=== PATIENT | male | born 1960 | race Caucasian/White ===

== ENCOUNTER 2017-06-23 14:14 | Inpatient (IN) | payer OTHER ==
[~2017-06-23] VITALS: Ht 175.3 cm; Wt 68.0 kg
--- NOTE | 2017-06-23 14:56 | ED SKIN/ALLERGY COMPLAINT ---
History of Present Illness General Chief Complaint: General Adult Stated Complaint: R HAND INFECTION Source: patient, old records Exam Limitations: no limitations Vital Signs & Intake/Output Vital Signs & Intake/Output Vital Signs Date Time Temp Pulse Resp B/P B/P Pulse O2 O2 Flow FiO2 Mean Ox Delivery Rate 06/23 1851 98.8 84 20 109/68 95 Room Air 06/23 1847 96 Room Air 06/23 1518 98.9 86 16 101/53 95 Room Air 06/23 1433 99.0 101 28 142/78 Allergies Coded Allergies: Penicillins (HIVES 06/23/17) Reconcile Medications Ibuprofen 600 MG TABLET 1 TAB PO TID PRN PRN PAIN (Reported) with food Triage Note: PER PT NOTED A BLISTER TO RT WRIST 4 DAYS AGO, AND POPPED IT THEN ANOTHER STARTED, PT WITH ULCERS WITH DRAINAGE NOTED TO RT WRIST DENIES KNOWN INJURY, SWOOLEN RED TO TOUCH WHOLE HAND SWOLLEN Triage Nurses Notes Reviewed? yes Onset: Abrupt Duration: week(s): (1), constant Timing: recent history Severity: moderate Severity Numbers: 6 Location: extremities Possible Factors: no cause identified No Modifying Factors: none Associated Symptoms: swelling/mass/lumps HPI: 57-year-old male with no medical history presents to the ER for evaluation he states over the past 4 days he noticed a blister to his right wrist. He denies any known injury or trauma. He states that he popped the blister and subsequently the next day he developed a second blister over his wrist with significant swelling redness warmth and pain. He denies any difficulty or pain with range of motion of his wrist. He states that he's been bit by a brown recluse spiders in the past several denies noting any recent spider bites. He just moved back from [place] 3 weeks ago. He denies any fevers chills night sweats weight loss. No other rashes to his skin. He's been taking Tylenol Advil without appointment. He is an active smoker and denies alcohol. When questioning the patient by myself without nursing present- he now admits to recent IV drug abuse in that region 1 week ago prior to noticing the blister that developed 4 days ago. (Zheng Perez) Past History Travel History Traveled to [place] past 21 day No Medical History Any Pertinent Medical History? none Neurological: NONE EENT: NONE Cardiovascular: NONE Respiratory: NONE Gastrointestinal: NONE Hepatic: NONE Renal: NONE Musculoskeletal: NONE Psychiatric: NONE Endocrine: NONE Surgical History Surgical History: non-contributory Psychosocial History What is your primary language Welsh Tobacco Use: Current Daily Use Daily Tobacco Use Amount/Type: => 5 Cigarettes daily ETOH Use: heavy use Family History Hx Contributory? No (Zheng Perez) Review of Systems Review of Systems Constitutional: Reports: see HPI. Comments Review of systems: See HPI, All other systems negative. Constitutional, no chills no fever, HEENT: no sore throat no congestion Cardiovascular: No chest pain , no palpitation Skin: no rashes, no change in skin Respiratory: No dyspnea no cough no sputum GI: No nausea no vomiting, no diarrhea, : No dysuria Muscle skeletal: No joint pain, no back pain Neurologic: , no headache Heme/endocrine: No bruising Immunology: No lymphadenopathy (Zheng Perez) Physical Exam Physical Exam General Appearance: well developed/nourished, alert, awake Comments: Well-developed well-nourished patient in no apparent distress. HEENT: Atraumatic, extraocular motion intact Neck: Supple, FROM Back: FROM Cardiovascular: Regular rate and rhythms no murmur Respiratory: No respiratory distress. Patient speaking in full complete sentences. Breath sounds clear to auscultation bilaterally: NO W/R/R Shoulder: Atraumatic/Stable. FROM . Elbow: Atraumatic/stable. FROM. No laxity Upper arm/Forearm: Atraumatic. Nontender. 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 Brisk cap refill Lower Extremities: full range of motion Neuro: awake, alert, and oriented to person, place and time. There were no obvious focal neurologic abnormalities. Skin: Warm & dry;No appreciable rash on exposed skin Psych: Mood affect normal, normal memory normal judgment. (Zheng Perez) Progress Differential Diagnosis: abscess/cellulitis, allergic reaction, contact dermatitis, drug reaction, cellulitis, abscess, septic arthritis, EMBEDED FB Plan of Care: Orders Procedure Date/time Status Nothing by Mouth 06/24 B Active CBC WITHOUT DIFFERENTIAL 06/24 599 Active BASIC ELECTROLYTES PLUS BUN&CR 06/24 599 Active Regular Diet 06/23 D Complete Pathway - chart 06/23 1751 Active Code Status 06/23 1751 Active Patient Data 06/23 1626 Active ED Holding Orders 06/23 1605 Active Admit to inpatient 06/23 1605 Active Vital Signs 06/23 1605 Active Code Status 06/23 1605 Complete EKG 06/23 1604 Active Intake & Output 06/23 1509 Active EXTREMETIES CULTURE 06/23 1441 Active BLOOD CULTURE 06/23 1436 Active LACTIC ACID 06/23 1436 Active WESTERGREN SED RATE 06/23 1436 Complete COMPREHENSIVE METABOLIC PANEL 06/23 1436 Active CBC WITHOUT DIFFERENTIAL 06/23 1436 Complete HIV (Reflex to HIVCQ) 06/23 1430 Active HEPATITIS PANEL 06/23 1430 Active House Staff 06/23 UNK Active Lab Add-on Test 06/23 UNK Active VTE Mechanical Prophylaxis 06/23 UNK Active Vital Signs 06/23 UNK Active Intake & Output 06/23 UNK Active Elevate 06/23 UNK Active Current Medications Sig/Sonia Start time Last Medication Dose Stop Time Status Admin Enoxaparin Sodium 40 MG DAILY 06/24 1000 AC (Lovenox) Clindamycin 600 MG Q8H 06/23 2330 AC (Cleocin) Dextrose/Water 50 ML (D5W) Dextrose/Sodium 1,000 ML Q13H 06/23 1830 AC 06/23 Chloride 06/24 2029 1835 (D5-Normal Saline) Ketorolac 15 MG Q6 06/23 1830 AC 06/23 Tromethamine 06/25 0000 1835 (Toradol) Acetaminophen 650 MG Q6P PRN 06/23 1800 AC (Tylenol) Hydrocodone Bitart/ 1 TAB Q6P PRN 06/23 1800 AC Acetaminophen (Vicodin) Morphine Sulfate 2 MG Q4P PRN 06/23 1800 AC (Morphine) Laboratory Tests 06/23/17 1736: Lactic Acid Cancelled 06/23/17 1430: Anion Gap 17 H, Estimated GFR > 60, BUN/Creatinine Ratio 16.7, Glucose 125 H, Lactic Acid 1.5, Calcium 9.3, Total Bilirubin 0.2, AST 33, ALT 33, Alkaline Phosphatase 99, Total Protein 7.9, Albumin 4.1, Globulin 3.8, Albumin/Globulin Ratio 1.1, CBC w Diff NO MAN DIFF REQ, RBC 4.68 L, MCV 91.4, MCH 30.7, MCHC 33.5, RDW 14.2, MPV 7.4, Gran % 66.5, Lymphocytes % 23.7, Monocytes % 7.7, Eosinophils % 1.8, Basophils % 0.3, Absolute Granulocytes 8.1 H, Absolute Lymphocytes 2.9, Absolute Monocytes 0.9 H, Absolute Eosinophils 0.2, Absolute Basophils 0, ESR Westergren 44 H, Hepatitis A IgM Ab Pending, Hep Bs Antigen Pending, Hep B Core IgM Ab Conf Pending, Hepatitis C Antibody Pending, HIV 1&2 Ab Western Blot NONREACTIVE Microbiology 06/23 1519 BLOOD: Blood Culture - RECD 06/23 1445 EXTREMITIE: Culture & Sensitivity - RECD 06/23 1445 EXTREMITIE: Gram Stain - RECD 06/23 1430 BLOOD: Blood Culture - RECD labs ordered, clindamyin 300mg iv ordered, case d/w dr subramanian agrees with plan Discussed with the patient at length all the lab results x-ray findings and the clindamycin IV running. Dr. Subramanian spoke with Dr. lafleur we will admit all placed to surgery for consult. case d/w dr myrick- surgery will consult [address] myrick in dept Diagnostic Imaging: Viewed by Me: Radiology Read. Discussed w/RAD: Radiology Read. Radiology Impression: PATIENT: JARVIS LOPEZ PRESENT AGE: 57 PATIENT ACCOUNT NO: [id number] : 62 LOCATION: [facility] ORDERING PHYSICIAN: Zheng CRAWFORD SERVICE DATE: 06/23/17 EXAM TYPE: RAD - XRY-WRIST COMPLETE-RIGHT EXAMINATION: WRIST, RIGHT CLINICAL INFORMATION : Right wrist swelling, redness and pain. Evaluate for osteomyelitis. COMPARISON : None TECHNIQUE: Four views of the right wrist. FINDINGS: Prominent soft tissue swelling is seen over the lateral and dorsal aspect of the distal radius, perhaps related to cellulitis given the clinical symptoms described. Underlying bony structures are intact with no evidence of focal lytic or destructive bone lesion or abnormal periosteal reaction seen. No acute fracture or dislocation is noted. Old healed fracture deformity of the distal fourth and fifth metacarpal bones is seen. No significant degenerative changes seen. IMPRESSION: 1. Prominent soft tissue swelling over the distal radius, likely related to cellulitis. 2. No plain film evidence of osteomyelitis. DICTATED BY: Lu Martinez MD DATE/TIME DICTATED:06/23/171541 ANALOG DESIGN ENGINEER:KENNETH DATE/ TIME TRANSCRIBED:06/23/171541 CONFIDENTIAL, DO NOT COPY WITHOUT APPROPRIATE AUTHORIZATION. <Electronically signed in Other Vendor System> SIGNED BY: Lu Martinez MD 06/23/17 1548 (Zheng Peerz) Departure Departure Time of Disposition: 1607 Disposition: STILL A PATIENT Condition: Stable Clinical Impression Primary Impression: Cellulitis Qualifiers: Site of cellulitis: extremity Site of cellulitis of extremity: upper extremity Laterality: right Qualified Code: L03.113 - Cellulitis of right upper limb Secondary Impressions: Abscess Referrals: Patient Has No Primary Care Dr (PCP/Family) Departure Forms: Customer Survey General Discharge Information Admission Note Spoke With: Salome Lafleur MD Documentation of Exam: Documentation of any treatments & extenuating circumstances including Concerns Regarding Discharge (functional status, medication knowledge or non-compliance, living conditions, etc.) that warrant an admission rather than observation: IV ANTIBIOTICS, TREND LABS AND CULTURES, SURGERY VS WOUND CARE CONSULT, PREMATURE DISCHARGE WOULD BE MEDICALLY HARMFUL (Zheng Perez) Admission Note Spoke With: Salome Lafleur MD Documentation of Exam: Documentation of any treatments & extenuating circumstances including Concerns Regarding Discharge (functional status, medication knowledge or non-compliance, living conditions, etc.) that warrant an admission rather than observation: [IV antibiotics, follow-up cultures both blood and the wound, surgical consultation, social work consultation for IVDA] PA/BINGO WORKER Co-Sign Statement Statement: ED Attending supervision documentation- [X] I saw and evaluated the patient. I have also reviewed all the pertinent lab results and diagnostic results. I agree with the findings and the plan of care as documented in the PA's/BINGO WORKER's documentation. [X] I have reviewed the ED Record and agree with the PA's/BINGO WORKER's documentation. [] Additions or exceptions (if any) to the PAs/BINGO WORKER's note and plan are summarized below: [SEE ABOVE] (Moris DARDEN,Gabe South
[2017-06-23 14:58] LABS: ABSOLUTE BASOPHIL COUNT 0 /CUMM (0.0-0.2); ABSOLUTE EOSINOPHIL COUNT 0.2 /CUMM (0.0-0.7); ABSOLUTE GRANULOCYTE CT 8.1 /CUMM (1.4-6.5); ABSOLUTE LYMPH COUNT 2.9 /CUMM (1.2-3.4); ABSOLUTE MONOCYTE COUNT 0.9 /CUMM (0.10-0.60); BASOPHIL % 0.3 % (0.0-2.0); EOSINOPHIL % 1.8 % (0-5); GRANULOCYTE % 66.5 % (42.2-75.2); HEMATOCRIT 42.8 % (42-52); MEAN CORPUSCULAR HGB 30.7 PG (27.0-31.0); MEAN CORPUSCULAR HGB CONC 33.5 G/DL (33.0-37.0); MEAN CORPUSCULAR VOLUME 91.4 FL (80.0-94.0); MEAN PLATELET VOLUME 7.4 FL (7.4-10.4); PLATELET COUNT 334 /CUMM (130-400); RBC DISTRIBUTION WIDTH 14.2 % (11.5-14.5); RED BLOOD CELL CT 4.68 /CUMM (4.70-6.10); WHITE BLOOD CELL COUNT 12.1 /CUMM (4.8-10.8)
[2017-06-23] MEDS ORDERED: IBUPROFEN600 M1 PO (15:28)
--- NOTE | 2017-06-23 15:48 | RADIOLOGY REPORT ---
EXAMINATION: DR WRIST, RIGHT CLINICAL INFORMATION: Right wrist swelling, redness and pain. Evaluate for osteomyelitis. COMPARISON: None TECHNIQUE: Four views of the right wrist. FINDINGS: Prominent soft tissue swelling is seen over the lateral and dorsal aspect of the distal radius, perhaps related to cellulitis given the clinical symptoms described. Underlying bony structures are intact with no evidence of focal lytic or destructive bone lesion or abnormal periosteal reaction seen. No acute fracture or dislocation is noted. Old healed fracture deformity of the distal fourth and fifth metacarpal bones is seen. No significant degenerative changes seen. IMPRESSION: 1. Prominent soft tissue swelling over the distal radius, likely related to cellulitis. 2. No plain film evidence of osteomyelitis.
--- NOTE | 2017-06-23 18:22 | History & Physical ---
AlliIsaac 06/23/17 4509: General Information and HPI MD Statement: I have seen and personally examined JARVIS LOPEZ and documented this H&P. The patient is a 57 year old M who presented with a patient stated chief complaint of right hand redness and swelling with pain for last 1 week.[]. Source of Information: patient Exam Limitations: no limitations History of Present Illness: 57 YO M smoker (1-2 pack/day), IV drug abuser without any significant past medical history came to ED with right hand swelling, redness and pain for last 1 week. He reported that he was in his usual state of health 1-1/2 weeks back and he was in [place] where he is assuming that he has been bit by brown recluse spider. Patient also reported that he injected himself with heroin injection on the right hand at the same spot where he developed a blister and no pus is coming out from that site. According to the patient at that point the site of injection was clean. But after 2-3 days he developed redness and blister on right hand at the injection Spot. Later on this blister burst by itself with fluid discharge and he developed another blister over his hand. Later on pus started to come from the sites and his redness starts spreading towards the dorsal surface of the forearm. Now he is not able to make a fist and his pain has increased to 10/10, sharp and continuous pain. Patient also reported that he didn't see the spider but he is assuming that there was spider bite. Patient denied any chest pain, short of breath, palpitation, nausea, vomiting, night sweats, unintentional weight loss, cough, fever, chills, rash on his other part of the body, sick contacts, abdominal pain and dysuria. Patient also reported that he was using IV drugs including heroin for long time but last 2 years he is trying to quit it and last time he used one-week back when he injected himself on right hand. ED course; Vitals: Temperature 99.0, pulse 101, respiratory rate 28, blood pressure 142/78, oxygen saturation 95% room air. Labs: WBC count 12.1, hemoglobin 14.4, hematocrit 42.8, platelet count 334, sodium 143, potassium 4.1, BUN 10, creatinine 0.6, anion gap 17, glucose 125, lactic acid 1.5, calcium 9.3, bilirubin 0.2, AST 33, ALT 33, alkaline phosphatase 99, total protein 7.9, albumin 4.1, globulin 3.8 Patient received clindamycin in ED. Allergies/Medications Allergies: Coded Allergies: Penicillins (HIVES 06/23/17) Home Med list Ibuprofen 600 MG TABLET 1 TAB PO TID PRN PRN PAIN (Reported) with food Past History Travel History Traveled to [place] past 21 day No Medical History Neurological: NONE EENT: NONE Cardiovascular: NONE Respiratory: NONE Gastrointestinal: NONE Hepatic: NONE Renal: NONE Musculoskeletal: NONE Psychiatric: NONE Endocrine: NONE Surgical History Surgical History: non-contributory Past Family/Social History Psychosocial History ETOH Use: heavy use Review of Systems Review of Systems Constitutional: Reports: no symptoms. EENTM: Reports: no symptoms. Cardiovascular: Reports: no symptoms. Respiratory: Reports: no symptoms. GI: Reports: no symptoms. Genitourinary: Reports: no symptoms. Musculoskeletal: Reports: see HPI. Skin: Reports: see HPI. Neurological/Psychological: Reports: no symptoms. Exam & Diagnostic Data Last 24 Hrs of Vital Signs/I&O Vital Signs Date Time Temp Pulse Resp B/P B/P Pulse O2 O2 Flow FiO2 Mean Ox Delivery Rate 06/23 1518 98.9 86 16 101/53 95 Room Air 06/23 1433 99.0 101 28 142/78 Intake & Output 06/23 1600 02/ 0800 02/08 0000 Intake Total Output Total Balance Patient 150 lb Weight Physical Exam General Appearance Alert, Oriented X3, Cooperative, No Acute Distress Skin Temp/Moisture Exam: Warm/Dry Sepsis Skin Exam (color): Normal for Ethnicity HEENT Atraumatic, PERRLA, EOMI Neck Supple Cardiovascular Normal S1, Normal S2 Lungs Clear to Auscultation, Normal Air Movement Abdomen Soft, No Tenderness Neurological Normal Speech, Strength at 5/5 X4 Ext, Normal Tone Extremities No Edema, right hand redness and swelling on dorsal radial side., swellin gof right thenar eminence, pus is draining from the dorsal surface of hand. Assessment/Plan Assessment: 57 YO M smoker (1-2 pack/day), IV drug abuser without any significant past medical history came to ED with right hand swelling, redness and pain for last 1 week. We will admit the patient on general medicine floor to treat for right hand abscess and cellulitis: Right hand dorsal subcutaneous space abscess and spreading cellulitis: -Nothing by mouth for I&D of right hand abscess. -IV hydration -Pain medication according to the pain pathway -IV clindamycin every 8 hourly -We will follow surgery recommendations. -Right hand elevation to decrease the swelling. -OT evaluation in the morning and hand exercises. DVT Prophylaxis; Mechanical and Lovenox subcutaneous. CODE STATUS: DNR/DNI As Ranked By This Provider Problem List: 1. Abscess 2. Cellulitis Qualifiers Site of cellulitis: extremity Site of cellulitis of extremity: upper extremity Laterality: right Qualified Code: L03.113 - Cellulitis of right upper limb Core Measures/Misc (01/30) Acute Coronary Syndrome ACS Diagnosis: No Congestive Heart Failure Congestive Heart Failure Diagnosis No Cerebrovascular Accident CVA/TIA Diagnosis: No VTE (View Protocol) VTE Risk Factors Age>40 No Mechanical VTE Prophylaxis d/t N/A MechProphylax Ordered No VTE Pharm Prophylaxis d/t NA PharmProphylax ordered Sepsis (View protocol) Sepsis Present: No Yonatan Flores 06/23/17 1822: Resident Review Statement Resident Statement: examined this patient, discussed with record label intern, agreed with record label intern, discussed with family, reviewed EMR data (avail), reviewed images, amended to note Other Findings: 57-year-old gentleman with history of IV drug abuse, presents with right wrist swelling, redness, and oozing wounds. A week and a half prior to admission, patient used IV drugs at the same site of erythema. Following that he noticed a blister that he popped and then another one appeared which he popped again. This resulted in extensive erythema and eventual appearance of skin openings oozing yellow pus. This prompted patient to come to the ED and seek medical attention. Also, patient mentions that he believes he might have encountered a spider bite at the same site while he was in [place] a week and half ago. On physical exam patient has severe pain on the medial aspect of the right wrist , erythema without margins and significant edema that almost extends beyond the erythema. He has no fever, no evidence of skin bullae, necrosis or ecchymosis. Patient will be admitted to general medicine floor. 1. Purulent cellulitis: Clindamycin IV 600 mg every 8 hours, for possible MRSA. This will provide appropriate coverage for possible secondary infection following spider bite. Patient has no systemic signs of infection. May check CRP and ESR. Importantly, on wrist x-ray-the infection is only limited to soft tissue over the distal radius. Patient needs incision and drainage, surgery notified. Frequent right wrist exams to check for range of motion, and signs of neurovascular compromise. Follow up wound culture results from OR. Blood cultures. Adequate pain control with Toradol [id number] as well as narcotics when necessary. D5 normal saline at 75 mL an hour. Nothing by mouth. Check HIV, hep C and B. DNR/DNI Nothing by mouth Lovenox for DVT prophylaxis. Ciarra DARDEN,Salome 06/23/17 2308: Attending MD Review Statement Attending Statement Attending MD Statement: examined this patient, discuss w/resident/PA/CENTRAL STERILE TECHNICIAN, agreed w/resident/PA/CENTRAL STERILE TECHNICIAN, reviewed EMR data (avail), discussed with nursing, discussed with case mgmt, amended to note Attending Assessment/Plan: Patient seen and examined. I reviewed and agree with patient is as documented by the resident above. Patient presents with right hand cellulitis which occurred after a spider bite. On examination he has significant amount of purulent drainage from 2 areas at the base of the right thumb. X-ray shows no evidence of osteomyelitis at present. He is currently afebrile and hemodynamically stable. On account of his penicillin allergy (rash) he has been started on clindamycin in order provide MRSA coverage as well. Surgical consultation has been placed. Recommend obtaining ID consultation as well.
--- NOTE | 2017-06-23 21:32 | Cons- General Surgery ---
General Information and HPI Consulting Request Date of Consult: 06/23/17 Requested By: Salome Lafleur MD Reason for Consult: Arm abscess Source of Information: patient History of Present Illness: This is a 57 year-old male with a history of IVDA who presents with a right hand swelling, redness, two blister formations and pain since last . He states he was visiting his friend in [place] a week an a half ago and thought he was bite by a brown recluse spider, however, he denies ever seeing a spider. Upon further questioning, he admits to injecting himself with heroin in the same distribution of his blisters and redness with his friend. He noticed a purulent blister formed last Tuesday and reports popping the blister himself to promote drainge. He states another blister developed yesterday and starting draining pus today with worsening surrounding redness and pain. He describes the pain as sharp and constant. Patient denies any chest pain, short of breath, palpitation , nausea, vomiting, night sweats, cough, fever, chills, rash on his other part of the body, sick contacts. He states he took a pint of alcohol for the pain, which did not provide him with any relief and reports prior to drinking yesterday he had been sober for 15 years. He also reports prior to a week an half ago and once in October, he was clean from IVDA for two years. Allergies/Medications Allergies: Coded Allergies: Penicillins (HIVES 06/23/17) Home Med List: Ibuprofen 600 MG TABLET 1 TAB PO TID PRN PRN PAIN (Reported) with food Past History Medical History Neurological: NONE EENT: NONE Cardiovascular: NONE Respiratory: NONE Gastrointestinal: NONE Hepatic: NONE Renal: NONE Musculoskeletal: NONE Psychiatric: NONE Endocrine: NONE Surgical History Pertinent Surgical History: non-contributory Psychosocial History ETOH Use: infrequently Illicit Drug Use: heroin (1.5 weeks ago), marijuana (occasionally) Review of Systems Review of Systems: Constitutional: Reports: no symptoms. EENTM: Reports: no symptoms. Cardiovascular: Reports: no symptoms. Respiratory: Reports: no symptoms. GI: Reports: no symptoms. Genitourinary: Reports: no symptoms. Musculoskeletal: Reports: see HPI. Skin: Reports: see HPI. Neurological/Psychological: Reports: no symptoms. Exam & Diagnostic Data Vital Signs and I&O Vital Signs Date Time Temp Pulse Resp B/P B/P Pulse O2 O2 Flow FiO2 Mean Ox Delivery Rate 06/23 1851 98.8 84 20 109/68 95 Room Air 06/23 1847 96 Room Air 06/23 1518 98.9 86 16 101/53 95 Room Air 06/23 1433 99.0 101 28 142/78 Intake & Output 06/23 1600 06/23 0800 06/23 0000 06/22 1600 06/22 0000 Intake Total Output Total Balance Patient 150 lb Weight Physical Exam: Gen - awake an alert in NAD Cardio - S1S2 noted, RRR Lungs - CTAB Skin - right arm inspected, in the dorsal wrist region there is 1 cm x 1 cm superficial ulceration with pus noted with surronding swelling and erythema noted, proxmially is a larger abscess 4 cm x 3 cm with pinpoint openings draining purulent material spontanously, pus expressed from both openings when palpated on either side, strength and sensation intact with full active and passive ROM Pulses - Radial pulses present B/L Last 24 Hours of Labs: Laboratory Tests 06/23 06/23 1736 1430 Chemistry Sodium (137 - 145 mmol/L) 143 Potassium (3.5 - 5.1 mmol/L) 4.1 Chloride (98 - 107 mmol/L) 106 Carbon Dioxide (22 - 30 mmol/L) 20 L Anion Gap (5 - 16) 17 H BUN (9 - 20 mg/dL) 10 Creatinine (0.7 - 1.2 mg/dL) 0.6 L Estimated GFR (>60 ml/min) > 60 BUN/Creatinine Ratio (7 - 25 %) 16.7 Glucose (65 - 99 mg/dL) 125 H Lactic Acid (0.7 - 2.1 mmol/L) Cancelled 1.5 Calcium (8.4 - 10.2 mg/dL) 9.3 Total Bilirubin (0.2 - 1.3 mg/dL) 0.2 AST (17 - 59 U/L) 33 ALT (21 - 72 U/L) 33 Alkaline Phosphatase (< 127 U/L) 99 Total Protein (6.3 - 8.2 g/dL) 7.9 Albumin (3.5 - 5.0 g/dL) 4.1 Globulin (1.9 - 4.2 gm/dL) 3.8 Albumin/Globulin Ratio (1.1 - 2.2 %) 1.1 Hematology CBC w Diff NO MAN DIFF REQ WBC (4.8 - 10.8 /CUMM) 12.1 H RBC (4.70 - 6.10 /CUMM) 4.68 L Hgb (14.0 - 18.0 G/DL) 14.4 Hct (42 - 52 %) 42.8 MCV (80.0 - 94.0 FL) 91.4 MCH (27.0 - 31.0 PG) 30.7 MCHC (33.0 - 37.0 G/DL) 33.5 RDW (11.5 - 14.5 %) 14.2 Plt Count (130 - 400 /CUMM) 334 MPV (7.4 - 10.4 FL) 7.4 Gran % (42.2 - 75.2 %) 66.5 Lymphocytes % (20.5 - 51.1 %) 23.7 Monocytes % (1.7 - 9.3 %) 7.7 Eosinophils % (0 - 5 %) 1.8 Basophils % (0.0 - 2.0 %) 0.3 Absolute Granulocytes (1.4 - 6.5 /CUMM) 8.1 H Absolute Lymphocytes (1.2 - 3.4 /CUMM) 2.9 Absolute Monocytes (0.10 - 0.60 /CUMM) 0.9 H Absolute Eosinophils (0.0 - 0.7 /CUMM) 0.2 Absolute Basophils (0.0 - 0.2 /CUMM) 0 ESR Westergren (0 - 10 MM) 44 H Serology Hepatitis A IgM Ab (NONREACTIVE) Pending Hep Bs Antigen (NONREACTIVE) Pending Hep B Core IgM Ab Conf (NONREACTIVE) Pending Hepatitis C Antibody (NONREACTIVE) Pending HIV 1&2 Ab Western Blot (NONREACTIVE) NONREACTIVE Imaging Results: SERVICE DATE: 06/23/17 EXAM TYPE: RAD - XRY-WRIST COMPLETE-RIGHT EXAMINATION: WRIST, RIGHT CLINICAL INFORMATION: Right wrist swelling, redness and pain. Evaluate for osteomyelitis. COMPARISON: None TECHNIQUE: Four views of the right wrist. FINDINGS: Prominent soft tissue swelling is seen over the lateral and dorsal aspect of the distal radius, perhaps related to cellulitis given the clinical symptoms described. Underlying bony structures are intact with no evidence of focal lytic or destructive bone lesion or abnormal periosteal reaction seen. No acute fracture or dislocation is noted. Old healed fracture deformity of the distal fourth and fifth metacarpal bones is seen. No significant degenerative changes seen. IMPRESSION: 1. Prominent soft tissue swelling over the distal radius, likely related to cellulitis. 2. No plain film evidence of osteomyelitis. Assessment/Plan Assessment/Plan This is a 57 year-old IVDA, admitted to medicine who presents with right wrist/ forearm cellulitis with a connection between the two abscess Bedside I&D of right-sided abscesses Antibiotics per primary team Follow up wound culture - taken postprocedure by ER PA Reg diet May require further debridement Will reevaluate in am and change packing Pricing Analyst patient on IV drug use cessation All other management per primary team Discussed with Dr. Nugent Procedure preformed: I&D of right-sided forearm and wrist abscess Patient was placed in semi-recumbent position with his right arm out. Right distal arm was prepped and drapped in steril fashion. 20 cc of 1% Lidocain was injected under the skin for local anesthetic. An 11 blade scalpel was used to make a 1 cm incision over the more proximal abscess' area of flutuance. There was purulent drainage and an instrument was used to break up loculations, which patient could not tolerate well. Roughly 15 cc of pus was drained and then irrigated with 20 cc of sterile saline. Proximal incision was then packed with 1 /2 iodoform packing. Dry dressing was applied. Consult Acknowledgment - Thank you for your consult request.
[2017-06-23 22:37] VITALS: BP 114/68
--- NOTE | 2017-06-23 23:08 | Admission Certification ---
Admission Certification Certification Statement - As attending physician, I certify that at the time of - admission, based on clinical presentation, severity of - symptoms, need for further diagnostic testing and - therapeutic interventions, and risk of adverse outcomes - without in-hospital treatment, in my clinical assessment, - this patient requires an acute hospital stay for a minimum - of two nights or longer. I have also considered psychsocial - factors such as support system, advanced age, financial - issues, cognitive issues, and failed out-patient treatments, - past re-admission history, safety of patient, and lack of - compliance as applicable. Specific rationale supporting this admission is: Hospitalization is required for further management of his right upper extremity cellulitis.
[2017-06-24 06:30] VITALS: BP 118/73
--- NOTE | 2017-06-24 07:34 | PN- Housestaff ---
AlliSuffolk 06/24/17 0733: Subjective Follow-up For: Right hand cellulitis and abscess Subjective: No overnight events. Patient remained afibrile over night. Seen and examined this morning. He denied any chest pain, short of breath, nausea, vomiting, chills, fever, abdominal pain dysuria. He is complaining of pain in right hand 6/10. Right hand still having redness and 2 draining abscesses. Dressing was soaked. Review of Systems Constitutional: Reports: no symptoms. EENTM: Reports: no symptoms. Cardiovascular: Reports: no symptoms. Respiratory: Reports: no symptoms. Gastrointestinal: Reports: no symptoms. Genitourinary: Reports: no symptoms. Musculoskeletal: Reports: see HPI. Neurological/Psychological: Reports: no symptoms. Objective Last 24 Hrs of Vital Signs/I&O Vital Signs Date Time Temp Pulse Resp B/P B/P Pulse O2 O2 Flow FiO2 Mean Ox Delivery Rate 06/24 0630 97.8 71 18 118/73 97 Room Air 06/23 2237 98.3 77 18 114/68 97 Room Air 06/23 1851 98.8 84 20 109/68 95 Room Air 06/23 1847 96 Room Air 06/23 1518 98.9 86 16 101/53 95 Room Air 06/23 1433 99.0 101 28 142/78 Intake & Output 06/24 1600 06/24 0800 06/24 0000 Intake Total 840 585 Output Total 0 Balance 840 585 Intake, IV 600 225 Intake, Oral 240 360 Output, Urine 0 Patient 150 lb Weight Weight Reported by Patient Measurement Method Physical Exam General Appearance: Alert, Oriented X3, Cooperative Skin Temp/Moisture Exam: Warm/Dry Sepsis Skin Exam (color): Normal for Ethnicity HEENT: Atraumatic, PERRLA, EOMI Neck: Supple Cardiovascular: Normal S1, Normal S2 Lungs: Clear to Auscultation Abdomen: Soft, No Tenderness Neurological: Normal Speech, Strength at 5/5 X4 Ext, Normal Tone Extremities: No Edema Assessment/Plan Assessment: 57 YO M smoker (1-2 pack/day), IV drug abuser without any significant past medical history came to ED with right hand swelling, redness and pain for last 1 week. We will admit the patient on general medicine floor to treat for right hand abscess and cellulitis: Right hand dorsal subcutaneous space abscess and spreading cellulitis: -S/P I&D was done last night. -Pain medication according to the pain pathway -IV clindamycin every 8 hourly -We will follow surgery recommendations. -Right hand elevation to decrease the swelling. -OT evaluation and hand exercises. -we will follow blood and pus culture results. -HIV serology is non reactive, we will follow Hepatitis pannel. -Daily dressing. DVT Prophylaxis: Mechanical and Lovenox subcutaneous. CODE STATUS: DNR/DNI Problem List: 1. Abscess 2. Cellulitis Pain Ratin Pain Location: right hand Pain Goal: Pain 4 or less Pain Plan: pain pathway Tomorrow's Labs & Rationales: cbc/bep Patel Suggs MD 06/24/17 1429: Attending MD Review Statement Attending Statement Attending MD Statement: examined this patient, discuss w/resident/PA/CHILD STUDY TEAM DIRECTOR, agreed w/resident/PA/CHILD STUDY TEAM DIRECTOR, reviewed EMR data (avail) Attending Assessment/Plan: 57M PMH IVDU with injections into hand admitted with right hand cellulitis and abscess s/p I&D on 06/23 with purulent discharge, afebrile with stable vitals, started on Clindamycin initially. Patient feels well today. No fever, chills, n/v, or other systemic symptoms. Reports hand pain managed with morphine. Drainage present from abscess on hand with improvement ROM and tenderness. 1. Right hand abscess and cellulitis 2. IVDU Plan - Continue on general medicine - Continue Clindamycin - Follow cultures - Follow surgery recommendations - Continue pain medications - DVT PPx
--- NOTE | 2017-06-24 09:01 | PN- General Surgery ---
See Addendum Subjective Subjective: Reports improvement in pain and ability to move his fingers. Still some tenderness. Bedside I&D done yesterday by surgical PA, with packing left in place and cultures sent. Objective Vital Signs and I&Os Vital Signs Date Time Temp Pulse Resp B/P B/P Pulse O2 O2 Flow FiO2 Mean Ox Delivery Rate 06/24 0530 97.8 71 18 118/73 97 Room Air 06/23 2237 98.3 77 18 114/68 97 Room Air 06/23 1851 98.8 84 20 109/68 95 Room Air 06/23 1847 96 Room Air 06/23 1518 98.9 86 16 101/53 95 Room Air 06/23 1433 99.0 101 28 142/78 Intake & Output 06/24 1600 06/24 0806/24 0000 06/23 1600 06/23 0800 06/23 0000 Intake Total 840 585 Output Total 0 Balance 840 585 Intake, IV 600 225 Intake, Oral 240 360 Output, Urine 0 Patient 150 lb 150 lb Weight Weight Reported by Patient Measurement Method Physical Exam: Extremities - dressing removed from right forearm / wrist, with evidence of seropurulent drainage draining from 2 open areas. packing removed (saturated with seropurulent drainage). resident who observed i&d yesterday is currently present during dressing change and reports improvement of the erythema and swelling. subjective improvement in his ROM of fingers. nvi Current Medications: Current Medications Sig/Sonia Start time Last Medication Dose Route Stop Time Status Admin Acetaminophen 650 MG Q6P PRN 06/23 1800 AC PO Clindamycin 600 MG Q8H 06/23 2330 AC 06/24 Dextrose/Water 50 ML IV 0728 Clindamycin 300 MG ONCE ONE 06/23 1500 DC 06/23 IV 06/23 1501 1527 Dextrose/Sodium 1,000 ML Q13H 06/23 1830 AC 06/24 Chloride IV 06/24 2029 0728 Enoxaparin Sodium 40 MG DAILY 06/24 1000 AC SC Hydrocodone Bitart/ 1 TAB Q6P PRN 06/23 1800 AC 06/24 Acetaminophen PO 0733 Ketorolac 30 MG .STK-MED ONE 06/23 2312 DC Tromethamine IM 06/23 2313 Ketorolac 0 .STK-MED ONE 06/23 183 DC Tromethamine .ROUTE Ketorolac 15 MG Q6 06/23 1830 AC 06/24 Tromethamine IV 06/25 0000 0458 Morphine Sulfate 0 .STK-MED ONE 06/23 2048 DC .ROUTE Morphine Sulfate 2 MG Q4P PRN 06/23 1800 AC 06/24 IV 0055 Nicotine 21 MG ONCE ONE 06/23 1900 DC 06/23 TOP 06/23 1901 1856 Nicotine 0 .STK-MED ONE 06/23 1859 DC TOP Oxycodone/ 0 .STK-MED ONE 06/23 1447 DC Acetaminophen PO Oxycodone/ 1 TAB ONCE ONE 06/23 1445 DC 06/23 Acetaminophen PO 06/23 1446 1452 Results Last 48 Hours of Labs: Laboratory Tests 06/23 06/23 1736 1430 Chemistry Sodium (137 - 145 mmol/L) 143 Potassium (3.5 - 5.1 mmol/L) 4.1 Chloride (98 - 107 mmol/L) 106 Carbon Dioxide (22 - 30 mmol/L) 20 L Anion Gap (5 - 16) 17 H BUN (9 - 20 mg/dL) 10 Creatinine (0.7 - 1.2 mg/dL) 0.6 L Estimated GFR (>60 ml/min) > 60 BUN/Creatinine Ratio (7 - 25 %) 16.7 Glucose (65 - 99 mg/dL) 125 H Lactic Acid (0.7 - 2.1 mmol/L) Cancelled 1.5 Calcium (8.4 - 10.2 mg/dL) 9.3 Total Bilirubin (0.2 - 1.3 mg/dL) 0.2 AST (17 - 59 U/L) 33 ALT (21 - 72 U/L) 33 Alkaline Phosphatase (< 127 U/L) 99 Total Protein (6.3 - 8.2 g/dL) 7.9 Albumin (3.5 - 5.0 g/dL) 4.1 Globulin (1.9 - 4.2 gm/dL) 3.8 Albumin/Globulin Ratio (1.1 - 2.2 %) 1.1 Hematology CBC w Diff NO MAN DIFF REQ WBC (4.8 - 10.8 /CUMM) 12.1 H RBC (4.70 - 6.10 /CUMM) 4.68 L Hgb (14.0 - 18.0 G/DL) 14.4 Hct (42 - 52 %) 42.8 MCV (80.0 - 94.0 FL) 91.4 MCH (27.0 - 31.0 PG) 30.7 MCHC (33.0 - 37.0 G/DL) 33.5 RDW (11.5 - 14.5 %) 14.2 Plt Count (130 - 400 /CUMM) 334 MPV (7.4 - 10.4 FL) 7.4 Gran % (42.2 - 75.2 %) 66.5 Lymphocytes % (20.5 - 51.1 %) 23.7 Monocytes % (1.7 - 9.3 %) 7.7 Eosinophils % (0 - 5 %) 1.8 Basophils % (0.0 - 2.0 %) 0.3 Absolute Granulocytes (1.4 - 6.5 /CUMM) 8.1 H Absolute Lymphocytes (1.2 - 3.4 /CUMM) 2.9 Absolute Monocytes (0.10 - 0.60 /CUMM) 0.9 H Absolute Eosinophils (0.0 - 0.7 /CUMM) 0.2 Absolute Basophils (0.0 - 0.2 /CUMM) 0 ESR Westergren (0 - 10 MM) 44 H Serology Hepatitis A IgM Ab (NONREACTIVE) NONREACTIVE Hep Bs Antigen (NONREACTIVE) NONREACTIVE Hep B Core IgM Ab Conf (NONREACTIVE) NONREACTIVE Hepatitis C Antibody (NONREACTIVE) REACTIVE H HIV 1&2 Ab Western Blot (NONREACTIVE) NONREACTIVE Assessment/Plan Assessment/Plan This is a 57 year-old IVDA, admitted to medicine who presents with right wrist/ forearm cellulitis with a connection between the two abscess s/p I&D yesterday with packing left in place dressing changed. packing removed irrigated with sterile water. re-dressed with dry guaze dressing continue iv clinda f/u cx will d/w
[2017-06-24 09:52] LABS: ABSOLUTE BASOPHIL COUNT 0 /CUMM (0.0-0.2); ABSOLUTE EOSINOPHIL COUNT 0.2 /CUMM (0.0-0.7); ABSOLUTE GRANULOCYTE CT 4.3 /CUMM (1.4-6.5); ABSOLUTE LYMPH COUNT 2.2 /CUMM (1.2-3.4); ABSOLUTE MONOCYTE COUNT 0.7 /CUMM (0.10-0.60); BASOPHIL % 0.5 % (0.0-2.0); EOSINOPHIL % 2.2 % (0-5); GRANULOCYTE % 58.1 % (42.2-75.2); HEMATOCRIT 44.7 % (42-52); MEAN CORPUSCULAR HGB 30.9 PG (27.0-31.0); MEAN CORPUSCULAR HGB CONC 33.4 G/DL (33.0-37.0); MEAN CORPUSCULAR VOLUME 92.3 FL (80.0-94.0); MEAN PLATELET VOLUME 7.2 FL (7.4-10.4); PLATELET COUNT 276 /CUMM (130-400); RBC DISTRIBUTION WIDTH 14.2 % (11.5-14.5); RED BLOOD CELL CT 4.84 /CUMM (4.70-6.10); WHITE BLOOD CELL COUNT 7.4 /CUMM (4.8-10.8)
[2017-06-24 14:31] VITALS: BP 125/77
[2017-06-24 21:42] VITALS: BP 110/70
[2017-06-25 06:11] VITALS: BP 130/78
[2017-06-25 08:28] LABS: ABSOLUTE BASOPHIL COUNT 0.2 /CUMM (0.0-0.2); ABSOLUTE EOSINOPHIL COUNT 0.2 /CUMM (0.0-0.7); ABSOLUTE MONOCYTE COUNT 0.5 /CUMM (0.10-0.60); GRANULOCYTE % 54.3 % (42.2-75.2)
[2017-06-25 09:04] LABS: ABSOLUTE GRANULOCYTE CT 4.1 /CUMM (1.4-6.5); ABSOLUTE LYMPH COUNT 2.6 /CUMM (1.2-3.4); EOSINOPHIL % 3.1 % (0-5); MEAN CORPUSCULAR HGB 30.8 PG (27.0-31.0); MEAN CORPUSCULAR HGB CONC 33.4 G/DL (33.0-37.0); MEAN CORPUSCULAR VOLUME 92.2 FL (80.0-94.0); MEAN PLATELET VOLUME 7.6 FL (7.4-10.4); PLATELET COUNT 283 /CUMM (130-400); RBC DISTRIBUTION WIDTH 14.5 % (11.5-14.5); WHITE BLOOD CELL COUNT 7.6 /CUMM (4.8-10.8)
--- NOTE | 2017-06-25 09:24 | PN- Housestaff ---
Zarina DARDEN,Chucho 06/25/17 0924: Subjective Follow-up For: right hand/wrist abscess Subjective: no other complaints s/p I+D afebrile continued purulent drainage from wound Review of Systems Constitutional: Reports: see HPI. Objective Last 24 Hrs of Vital Signs/I&O Vital Signs Date Time Temp Pulse Resp B/P B/P Pulse O2 O2 Flow FiO2 Mean Ox Delivery Rate 06/25 610 97.8 64 20 130/78 97 06/24 2142 98.2 80 18 110/70 96 06/24 1431 98.6 77 17 125/77 96 Room Air Intake & Output 06/25 1600 06/25 0800 06/25 0000 Intake Total 260 1065 Output Total Balance 260 1065 Intake, IV 20 225 Intake, Oral 240 840 Number 0 0 Bowel Movements Physical Exam General Appearance: Alert, Oriented X3, Cooperative, No Acute Distress Cardiovascular: Regular Rate, Normal S1, Normal S2, No Murmurs Lungs: Clear to Auscultation, Normal Air Movement Abdomen: Normal Bowel Sounds, Soft, No Tenderness, No Masses Extremities: No Clubbing, No Cyanosis, No Edema, Normal Pulses, R wrist s/p I+D, ~2x2cm x 2 open wounds with purulent drainage Current Medications: Current Medications Sig/Sonia Start time Last Medication Dose Route Stop Time Status Admin Acetaminophen 650 MG Q6P PRN 06/23 1800 AC PO Clindamycin 600 MG Q8H 06/23 2330 06/25 Dextrose/Water 50 ML IV 0658 Dextrose/Sodium 1,000 ML Q13H 06/23 1830 DC 06/24 Chloride IV 06/24 2029 0728 Enoxaparin Sodium 40 MG DAILY 06/24 1000 06/25 SC 0914 Hydrocodone Bitart/ 1 TAB Q6P PRN 06/23 1800 06/25 Acetaminophen PO 1312 Influenza Virus 0.5 ML ONCE ONE 06/24 1500 DC 06/24 Vaccine IM 06/24 1501 1552 Ketorolac 15 MG Q6 06/23 1830 AL 06/25 Tromethamine IV 06/25 0000 0004 Morphine Sulfate 2 MG Q4P PRN 06/23 1800 06/25 IV 1358 Nicotine 14 MG DAILY 06/24 1602 06/25 TOP 0914 Last 24 Hrs of Lab/Deonte Results Last 24 Hrs of Labs/Mics: Laboratory Tests 06/25/17 0710: Anion Gap 8, Estimated GFR > 60, BUN/Creatinine Ratio 18.6, CBC w Diff NO MAN DIFF REQ, RBC 4.30 L, MCV 92.2, MCH 30.8, MCHC 33.4, RDW 14.5, MPV 7.6, Gran % 54.3, Lymphocytes % 33.9, Monocytes % 6.7, Eosinophils % 3.1, Basophils % 2.0, Absolute Granulocytes 4.1, Absolute Lymphocytes 2.6, Absolute Monocytes 0.5, Absolute Eosinophils 0.2, Absolute Basophils 0.2 Assessment/Plan Assessment: 57 year old smoker (1-2 pack/day) with h/o IVDA presents with right hand swelling, redness, and purulent drainage x 1 week. Right hand abscess and spreading cellulitis: h/o IVDA -S/P I&D -Continue analgesia with morphine, vicodin and tylenol -Continue clindamycin 600mg IV q8h -Right hand elevation to decrease the swelling. -OT evaluation and hand exercises. -Cultures negative. -HIV negative, HCV positive -Daily dressing changes. Regular diet DVT ppx-lovenox 40mg subcutaneous daily DNR/DNI Problem List: 1. Cellulitis 2. Abscess Pain Ratin Pain Location: right wrist Pain Goal: Pain 4 or less Pain Plan: prn Tomorrow's Labs & Rationales: none Patel Suggs MD 06/25/17 1152: Attending MD Review Statement Attending Statement Attending MD Statement: examined this patient, discuss w/resident/PA/STRIPPER OPAQUER, agreed w/resident/PA/STRIPPER OPAQUER, reviewed EMR data (avail) Attending Assessment/Plan: 57M PMH IVDU with injections into hand admitted with right hand cellulitis and abscess s/p I&D on 06/23 with purulent discharge, afebrile with stable vitals, started on Clindamycin initially. Patient feels well today. No fever, chills, n/v, or other systemic symptoms. Reports hand pain managed with morphine. Drainage present from abscess on hand with improvement ROM and tenderness. 1. Right hand abscess and cellulitis 2. IVDU Plan - Continue on general medicine - Continue Clindamycin - Follow cultures - Follow surgery recommendations - Continue pain medications - DVT PPx
[2017-06-25 09:29] LABS: HEMATOCRIT 39.7 % (42-52)
[2017-06-25 15:01] VITALS: BP 120/62
[2017-06-25 22:45] VITALS: BP 106/58
[2017-06-26 06:19] VITALS: BP 110/68
--- NOTE | 2017-06-26 09:06 | PN- Housestaff ---
Zarina DARDEN,Chucho 06/26/17 0906: Subjective Follow-up For: right hand/wrist abscess Subjective: no other complaints s/p I+D afebrile continued purulent drainage from wound Review of Systems Constitutional: Reports: see HPI. Objective Last 24 Hrs of Vital Signs/I&O Vital Signs Date Time Temp Pulse Resp B/P B/P Pulse O2 O2 Flow FiO2 Mean Ox Delivery Rate 06/26 0619 97.7 67 20 110/68 96 06/25 2245 98.2 71 20 106/58 96 Room Air 06/25 1501 98.1 72 20 120/62 96 Room Air Intake & Output 06/26 1600 06/26 0800 06/26 0000 Intake Total 280 Output Total Balance 280 Intake, IV 40 Intake, Oral 240 Number 0 Bowel Movements Physical Exam General Appearance: Alert, Oriented X3, Cooperative, No Acute Distress Other Physical Findings: General Appearance: Alert, Oriented X3, Cooperative, No Acute Distress Cardiovascular: Regular Rate, Normal S1, Normal S2, No Murmurs Lungs: Clear to Auscultation, Normal Air Movement Abdomen: Normal Bowel Sounds, Soft, No Tenderness, No Masses Extremities: No Clubbing, No Cyanosis, No Edema, Normal Pulses, R wrist s/p I+D, ~2x2cm x 2 open wounds with purulent drainage Current Medications: Current Medications Sig/Sonia Start time Last Medication Dose Route Stop Time Status Admin Acetaminophen 650 MG Q6P PRN 06/23 1800 AC PO Clindamycin 600 MG Q8H 06/23 2330 AC 06/26 Dextrose/Water 50 ML IV 0652 Enoxaparin Sodium 40 MG DAILY 06/24 1000 AC 06/26 SC 0857 Hydrocodone Bitart/ 1 TAB Q6P PRN 06/23 1800 AC 06/26 Acetaminophen PO 0652 Morphine Sulfate 2 MG Q4P PRN 06/23 1800 AC 06/26 IV 0951 Nicotine 14 MG DAILY 06/24 1602 AC 06/26 TOP 0857 Assessment/Plan Assessment: 57 year old smoker (1-2 pack/day) with h/o IVDA presents with right hand swelling, redness, and purulent drainage x 1 week. Right hand abscess and spreading cellulitis: h/o IVDA -S/P I&D -Continue analgesia with morphine, vicodin and tylenol -Continue clindamycin 600mg IV q8h -Right hand elevation to decrease the swelling. -OT evaluation and hand exercises. -Cultures negative. -HIV negative, HCV positive -Daily dressing changes. Regular diet DVT ppx-lovenox 40mg subcutaneous daily DNR/DNI Problem List: 1. Cellulitis 2. Abscess Pain Ratin Pain Location: right hand/wrist Pain Goal: Pain 4 or less Pain Plan: prn Tomorrow's Labs & Rationales: none Patel Suggs MD 06/26/17 1157: Attending MD Review Statement Attending Statement Attending MD Statement: examined this patient, discuss w/resident/PA/SUPERVISOR LAMP SHADES, agreed w/resident/PA/SUPERVISOR LAMP SHADES, reviewed EMR data (avail) Attending Assessment/Plan: 57M PMH IVDU with injections into hand admitted with right hand cellulitis and abscess s/p I&D on 06/23 with purulent discharge, afebrile with stable vitals, started on Clindamycin initially. Patient feels well today. No fever, chills, n/v, or other systemic symptoms. Reports hand pain managed with morphine. Cultures NGTD. 1. Right hand abscess and cellulitis 2. IVDU Plan - Continue on general medicine - Continue Clindamycin - Follow cultures - Follow surgery recommendations, please request re-evaluation of wound, as no note for 2 days - Continue pain medications - DVT PPx
[2017-06-26 14:50] VITALS: BP 114/70
--- NOTE | 2017-06-26 21:58 | PN- General Surgery ---
Subjective Subjective: Patient reports continued discomfort to right wrist but states that he feels it has been improving throughout the course of the day. He has also been able to move his fingers more. Objective Vital Signs and I&Os Vital Signs Date Time Temp Pulse Resp B/P B/P Pulse O2 O2 Flow FiO2 Mean Ox Delivery Rate 06/26 1450 98.5 73 20 114/70 95 Room Air 06/26 0619 97.7 67 20 110/68 96 06/25 2245 98.2 71 20 106/58 96 Room Air Intake & Output 06/26 1600 06/26 0800 06/26 0000 06/25 1600 06/25 0800 06/25 0000 Intake Total 800 280 694 430 4365 Output Total Balance 800 280 784 477 1925 Intake, IV 40 65 20 225 Intake, Oral 800 240 800 240 840 Number 0 1 0 0 Bowel Movements Physical Exam: Dressing to right hand taken down. Area of ecchymosis appears to be resolving, is now concentrated to the immediate area surrounding each wound. There is a signficant reduction in swelling. There is some eschar tissue present. No purulent drainage when attempting to express the area around each wound. The areas were irrigated with sterile saline and wet to dry dressing reapplied. Assessment/Plan Assessment/Plan Improving cellulitis Continue IV antiboitic treatment, continue local wound care with wet to dry dressings daily.
[2017-06-26 23:22] VITALS: BP 116/68
[2017-06-27 06:52] VITALS: BP 110/60
--- NOTE | 2017-06-27 07:16 | PN- Housestaff ---
[place] 06/27/17 0715: Subjective Follow-up For: Right hand cellulitis and abscess Subjective: No overnight events. Patient remained afebrile overnight. Seen and examined this morning. He denied any chest pain, short of breath, nausea, vomiting, chills, fever, abdominal pain dysuria. Patient is getting daily dressing and wound irrigation. His wound was examined today that was clean with granulation tissue. There was no discharge from wound. patient will be discharged on oral antibiotics today. He will follow primary care physician and wound care as outpatient. Review of Systems Constitutional: Reports: no symptoms. EENTM: Reports: no symptoms. Cardiovascular: Reports: no symptoms. Respiratory: Reports: no symptoms. Gastrointestinal: Reports: no symptoms. Genitourinary: Reports: no symptoms. Musculoskeletal: Reports: no symptoms. Neurological/Psychological: Reports: no symptoms. Objective Last 24 Hrs of Vital Signs/I&O Vital Signs Date Time Temp Pulse Resp B/P B/P Pulse O2 O2 Flow FiO2 Mean Ox Delivery Rate 06/27 0652 97.8 74 16 110/60 98 Room Air 06/26 2322 98.5 73 20 116/68 96 Room Air 06/26 1450 98.5 73 20 114/70 95 Room Air Intake & Output 06/27 1600 06/27 0800 06/27 0000 Intake Total 100 1330 Output Total Balance 100 1330 Intake, IV 50 Intake, Oral 100 1280 Physical Exam General Appearance: Alert, Oriented X3, Cooperative Skin Temp/Moisture Exam: Warm/Dry Sepsis Skin Exam (color): Normal for Ethnicity HEENT: Atraumatic, PERRLA, EOMI Neck: Supple Cardiovascular: Normal S1, Normal S2 Lungs: Clear to Auscultation Abdomen: Soft, No Tenderness Neurological: Normal Gait, Normal Speech, Strength at 5/5 X4 Ext, Normal Tone Extremities: No Edema Assessment/Plan Assessment: 57 year old smoker (1-2 pack/day) with h/o IVDA presents with right hand swelling, redness, and purulent drainage x 1 week. Right hand abscess and spreading cellulitis: -H/O IVDA -S/P I&D -Continue analgesia with morphine, vicodin and tylenol -Continue clindamycin 600mg IV q8h. DAY 4 -Right hand elevation to decrease the swelling. -OT evaluation and hand exercises. -HIV negative, HCV positive -Daily dressing changes and wound irrigation. DVT prophylaxis: Mechanical and lovenox 40mg subcutaneous daily Code status; DNR/DNI Problem List: 1. Cellulitis 2. Abscess Pain Ratin Pain Location: none Pain Goal: Remain pain free Pain Plan: pain pathway Tomorrow's Labs & Rationales: ccb/bep Es DARDENPatel 06/27/17 1206: Attending MD Review Statement Attending Statement Attending MD Statement: examined this patient, discuss w/resident/PA/[employer], agreed w/resident/PA/[employer], reviewed EMR data (avail) Attending Assessment/Plan: 57M PMH IVDU with injections into hand admitted with right hand cellulitis and abscess s/p I&D on 06/23 with purulent discharge, afebrile with stable vitals, started on Clindamycin initially. Patient feels well today. His hand swelling has completely resolved. Wounds are clean with granulation tissue, and no evidence of fluctuance or abscess, afebrile. Cultures show only contaminant. 1. Right hand abscess and cellulitis 2. IVDU Plan - Stable for discharge - Antibiotics to complete course - Wound care follow up - Continue pain medications - Social work to see for heroin abuse
--- NOTE | 2017-06-27 09:25 | Patient Discharge Instructions ---
Discharge Instructions General Discharge Information You were seen/treated for: Right hand abscess and cellulitis Watch for these problems: Increase in pain of right hand, increasing redness, increase in swelling of right hand, increasing discharge from right hand and fever. -If she experiences any of these symptoms please come to ED or call your primary care physician. Special Instructions: Follow-up with your primary care physician in one week. Follow up with wound care clinic for dressing and wound management. Daily dressing. Daily hand exercises. Smoking cessation Diet Recommended Diet: Regular Activity Activity Self Limited: Yes Acute Coronary Syndrome Inclusion Criteria At DC or during hospital stay patient has or had the following: ACS DIAGNOSIS No Discharge Core Measures Meds if any: Prescribed or Continued at Discharge Meds if any: NOT Prescribed or Continued at Discharge Congestive Heart Failure Inclusion Criteria At DC or during hospital stay patient has or had the following: CHF DIAGNOSIS No Discharge Core Measures Meds if any: Prescribed or Continued at Discharge Meds if any: NOT Prescribed or Continued at Discharge Cerebrovascular accident Inclusion Criteria At DC or during hospital stay patient has or had the following: CVA/TIA Diagnosis No Discharge Core Measures Meds if any: Prescribed or Continued at Discharge Meds if any: NOT Prescribed or Continued at Discharge Venous thromboembolism Inclusion Criteria VTE Diagnosis No VTE Type NONE VTE Confirmed by (Test) NONE Discharge Core Measures - Per Current guidelines, there needs to be overlap - treatment for the first 5 days of Warfarin therapy. - If discharged on Warfarin prior to 5 days of - overlap therapy, the patient will need to be - assessed for post discharge needs including - *Post discharge parental anticoagulation - *Warfarin and/or parental anticoagulation education - *Follow up date to check INR post discharge At least 5 days overlap therapy as Inpatient No Meds if any: Prescribed or Continued at Discharge Note: Overlap Therapy is Warfarin and Anticoagulant Meds if any: NOT Prescribed or Continued at Discharge
--- NOTE | 2017-06-27 10:30 | Discharge Summary ---
See Addendum Visit Information Visit Dates Admission Date: 06/23/17 Discharge Date: 06/27/17 Hospital Course Course Attending Physician: Es DARDEN,Patel Primary Care Physician: Patient Has No Primary Care Dr Hospital Course: 57 YO M smoker (1-2 pack/day), IV drug abuser without any significant past medical history came to ED with right hand swelling, redness and pain for last 1 week. He reported that he was in his usual state of health 1-1/2 weeks back and he was in [place] where he is assuming that he has been bit by brown recluse spider. Patient also reported that he injected himself with heroin injection on the right hand at the same spot where he developed a blister and no pus is coming out from that site. ED course: Vitals: Temperature 99.0, pulse 101, respiratory rate 28, blood pressure 142/78, oxygen saturation 95% room air. Labs: WBC count 12.1, hemoglobin 14.4, hematocrit 42.8, platelet count 334, sodium 143, potassium 4.1, BUN 10, creatinine 0.6, anion gap 17, glucose 125, lactic acid 1.5, calcium 9.3, bilirubin 0.2, AST 33, ALT 33, alkaline phosphatase 99, total protein 7.9, albumin 4.1, globulin 3.8 Patient received clindamycin in ED. Right hand dorsal subcutaneous space abscess and cellulitis: Patient was admitted with right hand abscess with cellulitis probably after the injection of IV drugs. Blood cultures were obtained in ED that remained negative. X-ray right hand was done to rule out osteomyelitis that was negative. Pus cultures were also obtained in ED that was showing staph aureus coagulase-negative probably due to contamination. General surgery consult was obtained and recommendations were followed. In ED on bedside patient's abscess was drained and loculi were breaked. I&D was done in local anesthetic on bedside. Pus was drained and wound was washed. Patient was given IV clindamycin to cover MRSA and anaerobes. Later on found irrigation was done everyday with daily dry dressing. Patient received IV pain medications. Patient was instructed to do exercises of the head. Later on his right hand discharge was decreased and his cellulitis improved. During the hospital stay patient remained afebrile and WBC count remained within normal limits. Over discharge patient wound was examined, wound was clean with granulation tissue. Patient was discharged on Bactrim to complete total 10 days of antibiotics with Flagyl. Patient was instructed to follow primary care physician and wound care for dressing and wound management. Smoking cessation and IV drug abuse: Patient was consult for smoking cessation and during the hospital stay he was given nicotine patch. Patient was also instructed to follow primary care physician for further help for smoking cessation. Patient was also instructed to see outpatient addiction medicine clinic for his heroin abuse. DVT prophylaxis: Mechanical and lovenox 40mg subcutaneous daily Code status: DNR/DNI Allergies: Coded Allergies: Penicillins (HIVES 06/23/17) Pertinent Lab Results: Right wrist x-ray on 06/23/2017: IMPRESSION: 1. Prominent soft tissue swelling over the distal radius, likely related to cellulitis. 2. No plain film evidence of osteomyelitis. WBC count 7.6, hemoglobin 13.3, hematocrit 39.7, platelet count 283, sodium 140, potassium 4.3, BUN 13, creatinine 0.7, HIV nonreactive, hepatitis C antibody positive, AST 33, ALT 33. Disposition Summary Disposition Principal Diagnosis: Right hand abscess and cellulitis. Additional Diagnosis: IV drug abuser. Chronic smoker Discharge Disposition: home or self care Discharge Instructions General Discharge Information Code Status: Do Not Resucitate/Intubat Patient's Diet: Regular diet Patient's Activity: Self-limited Follow-Up Instructions/Appts: Follow-up with primary care physician in one week. Follow-up with the wound care as outpatient in 1 week. Medications at Discharge Discharge Medications: Stop taking the following medications: Ibuprofen (Ibuprofen) 600 MG TABLET ORAL THREE TIMES DAILY as needed for PRN PAIN Start taking the following new medications: Hydrocodone/Acetaminophen (Vicodin 5-300 MG Tablet) 5 MG-300 MG TABLET 1 Tablet ORAL EVERY SIX HOURS NEEDED as needed for Severe pain Qty = 15 No Refills Instructions: . Comments: Last Taken: 06/27/17 Time: 9:00 AM Sulfamethoxazole/Trimethoprim (Bactrim Ds Tablet) 800 MG-160 MG TABLET 1 Tablet ORAL TWICE DAILY Qty = 14 No Refills Instructions: . Comments: NOT GIVEN IN HOSPITAL Metronidazole (Flagyl) 500 MG TABLET 1 Tablet ORAL THREE TIMES DAILY Qty = 21 No Refills Instructions: . Comments: NOT GIVEN IN HOSPITAL Copies To: Brandan DARDEN,Brandan
[2017-06-27] MEDS ORDERED: FLAGYL500 MG PO ×2 (11:23→11:40)
[2017-06-27] MEDS ORDERED: VICODIN 5-3001 EACH PO ×2 (11:23→11:40)
[2017-06-27] MEDS ORDERED: BACTRIM DS TAB1 EACH PO ×2 (11:23→11:40)
== END 2017-06-27 13:11 | DRG 383 ==
LOC: ERH 14:14 → ERHI 16:05 → 2NB 16:05 → ENRESERV 19:21 → ENTRNSPT 20:53 → EDTRNSPT 21:17 → EDTRNSPTSTS 21:17 → 2NB 21:24 → CMPTRNSPT 21:34 → 2NB 06-24 09:37 → ENPENDDIS 06-27 11:50 → 2NB 06-27 13:11
PROVIDERS: Internal Medicine Hematology & Oncology; Physician Assistant Medical; Student in an Organized Health Care Education/Training Program
PROC: 0J9J3ZZ Drainage of Right Hand Subcutaneous Tissue and Fascia, Percutaneous Approach (ICD-10-PCS; principal; 2017-06-23)
DX: L03.113 Cellulitis of right upper limb (principal); L02.511 Cutaneous abscess of right hand; F11.10 Opioid abuse, uncomplicated; F17.210 Nicotine dependence, cigarettes, uncomplicated
CPT/HCPCS: 2NBP; 36415; 73110-RT; 82436; 87040; 87070; 87147; 87389; 93005; 93010; 96374; 96375; J1650; J1885; J7042; Q2036